=== PATIENT | male | born 1950 | race Caucasian/White ===

== ENCOUNTER → 2023-08-02 15:58 | Outpatient (CLI) | payer OTHER, SELFPAY ==
--- NOTE | 2023-08-02 | DI.ECHO.S_ITS ---
[facility] +---------+ : : [id number] : [address] [address] : : : : [id number] : : : : Phone: [phone]---------+ Echocardiogram Report + + :Name: AMELIA RUBI Study Date: 08/02/2023 Height: 74 in : :[facility] ReadingLocation: Weight: 257 lb : : Gender: Male BSA: 2.4 m2 : :: 1950 Age: 72 yrs BP: 118/67 mmHg: :Reason For Study: Hypertension : :Ordering Physician: JANETTE, : :MEHNAZ Performed By: Stephanie Galarza : :Referring: MEHNAZ SAVAGE : + + Interpretation Summary The study quality was technically difficult. The ejection fraction is estimated to be 40-45%. Grade I diastolic dysfunction. The right ventricle is mildly dilated. The right ventricular systolic function is normal. No significant valvular abnormalities. Pulmonary artery pressures cannot be estimated because of the lack of a measurable TR jet velocity. Procedure: A two-dimensional transthoracic echocardiogram with color flow and Doppler was performed. The study quality was technically difficult. There is no prior echocardiogram noted for this patient. The patient was in normal sinus rhythm during the exam. Left Ventricle: The left ventricle is normal in size. The ejection fraction is estimated to be 40-45%. Diastolic parameters suggest a relaxation abnormality of the left ventricle, consistent with probable normal filling pressures. Right Ventricle: The right ventricle is mildly dilated. The right ventricular systolic function is normal. Atria: The left atrium grossly appears normal in size. The right atrium grossly appears normal in size. There is no Doppler evidence for an interatrial shunt. Mitral Valve: The mitral valve is normal. There is no mitral valve stenosis. There is trace mitral regurgitation. Aortic Valve: The aortic valve is trileaflet. The aortic valve opens well. There is mild aortic valve sclerosis. There is no aortic valve stenosis. No aortic regurgitation is present. Tricuspid Valve: The tricuspid valve is not well visualized. There is no tricuspid stenosis. There is trace tricuspid regurgitation. Pulmonary artery pressures cannot be estimated because of the lack of a measurable TR jet velocity. Pulmonic Valve: The pulmonic valve is not well visualized. There is no pulmonic valvular stenosis. There is trace pulmonic regurgitation. Great Vessels: The aortic root is normal size. The ascending aorta is normal in size. The pulmonary artery is normal size. The IVC is of normal diameter and collapses greater than 50% with a sniff. This suggests a low right atrial pressure of 3 mm Hg. Pericardium/ Pleura There is no pericardial effusion. There is no pleural effusion. MMode/2D Measurements & Calculations LVOT diam: 2.0 cm LA A4 area: 11.4 cm2 Ao root diam: 3.2 cm asc Aorta Diam: 2.7 cm RA long axis: 4.9 cm RVD1 (basal): 4.3 cm RA area: 16.2 cm2 RA vol: 46.0 ml RA : 19.0 ml/m2 LVLs ap4: 5.9 cm LVLd ap2: 7.8 cm LVLs ap2: 6.2 cm TAPSE_phl: 2.0 cm Doppler Measurements & Calculations Ao V2 max: 159.0 cm/sec LVOT Max Raffi: 113.5 cm/sec Ao V2 mean: 103.5 cm/sec LV V1 max P.2 mmHg Ao max P.0 mmHg LV V1 VTI: 20.4 cm Ao mean P.0 mmHg PAM(I,D): 2.0 cm2 Ao V2 VTI: 32.6 cm PAM(V,D): 2.2 cm2 sev ratio: 0.63 PAM indexed to BSA (cm^2/m^2): 0.81 MV E max raffi: 47.0 cm/sec SV(LVOT): 64.1 ml MV A max raffi: 72.3 cm/sec MV E/A: 0.65 Med Peak E' Raffi: 6.2 cm/sec E/E' med: 7.6 Lat Peak E' Raffi: 6.5 cm/sec E/E' lat: 7.2 E/e' average: 7.4 MV dec time: 0.25 sec AV VR_phl: 0.72 PAM(MAGNOLIA/STEFAN_phl: 0.81 Reading Physician:[id number] PM
== END ==
PROVIDERS: Referring Provider Orthopaedic Surgery; Visit Provider Orthopaedic Surgery
DX: Z00.00 Encounter for general adult medical examination without abnormal findings (principal); I10 Essential (primary) hypertension; I51.7 Cardiomegaly
CPT/HCPCS: 93306